=== PATIENT | male | born 1975 | race Caucasian/White ===

== ENCOUNTER 2019-10-27 10:03 | Emergency (ER) | payer OTHER ==
[~2019-10-27] VITALS: Ht 190.5 cm; Wt 106.6 kg
[2019-10-27 10:09] VITALS: BP 152/100
--- NOTE | 2019-10-27 10:09 | NUR ---
ARRIVAL TO ED PATIENT ARRIVED TO ED WITH CC OF TOOTHACHE. MULTIPLE BROKEN TEETH NOTED TO R LOWER JAW WITH MODERATE TO SIGNIFICANT SWELLING NOTED TO R LOWER JAW. DR. CLEMENTE NOTIFIED OF PATIENT'S ARRIVAL. VERBALIZED UNDERSTANDING.
--- NOTE | 2019-10-27 10:20 | ER.PDOC ---
General Chief Complaint: Toothache Stated Complaint: TOOTHACHE Time seen by MD: 10:20 Source: patient Exam Limitations: no limitations History of Present Illness Timing/Duration: gradual, other (two days ago) Associated Symptoms: toothache, swollen jaw, jaw pain (R) Severity: moderate Worsen By: cold Prior symptoms/Treatment: Similar symptoms previous Allergies: Coded Allergies: No Known Allergies (Unverified , 10/27/19) Past Medical History Medical History: hypertension Surgical History: other Family History Significant Family History: no pertinent family hx Social History Smoking: non-smoker Alcohol Use: none Drug Use: none Constitutional: denies no symptoms reported, denies see HPI, denies chills, d enies diaphoresis, denies fever, denies malaise, denies weakness, denies other Eyes: denies no symptoms reported, denies see HPI, denies blindness, denies blurred vision, denies drainage, denies decreased acuity, denies foreign body s ensation, denies inflammation, denies pain, denies photophobia, denies previous injury, denies shadows, denies tunnel vision, denies vision change, denies contact lenses, denies glasses, denies other Ears: denies no symptoms reported, denies see HPI, denies dizziness, denies pain, denies tinnitus, denies bloody discharge, denies clear discharge, denies purulent discharge, denies serosanguinous discharge, denies previous injury, denies other Nose: denies no symptoms reported, denies see HPI, denies clots, denies congestion, denies epistaxis, denies pain, denies bloody discharge, denies clear discharge, denies purulent discharge, denies serosanguinous discharge, denies previous injury, denies other Throat: denies no symptoms reported, denies see HPI, denies pain, denies swelling, denies discharge, denies neck stiffness, denies aphonia, denies hoarse, denies muffled, denies painful swallowing, denies difficulty with fluids, denies previous injury, denies other Respiratory: denies no symptoms reported, denies see HPI, denies cough, denies orthopnea, denies shortness of breath, denies stridor, denies wheezing, denies other Cardiovascular: denies no symptoms reported, denies see HPI, denies chest pain, denies edema, denies palpitations, denies syncope, denies other Gastrointestinal: denies no symptoms reported, denies see HPI, denies abdominal pain, denies constipation, denies diarrhea, denies nausea, denies vomiting, denies other Musculoskeletal: denies no symptoms reported, denies see HPI, denies back pain, denies gout, denies joint pain, denies joint swelling, denies muscle pain, denies muscle stiffness, denies neck pain, denies other Skin: denies no symptoms reported, denies see HPI, denies change in color, denies change in hair/nails, denies dryness, denies lesions, denies lumps, denies rash, denies other Neurological: denies no symptoms reported, denies see HPI, denies anxiety, denies depressed, denies emotional problems, denies headache, denies numbness, denies paresthesia, denies pre-existing deficit, denies seizure, denies tingling, denies tremors, denies weakness, denies other Hematologic/Lymphatic: denies no symptoms reported, denies see HPI, denies anemia, denies blood clots, denies easy bleeding, denies easy bruising, denies swollen glands, denies other Immunological/Allergic: denies no symptoms reported, denies see HPI, denies food allergy, denies grass allergy, denies mold allergy, denies pollen allergy, denies HIV/AIDS, denies transplant Physical Exam General Appearance: mild distress Head/Neck: (R) mandibular swelling Eyes: eyes nml inspection, PERRL, no nystagmus Mouth: dental tenderness, gum swelling, widespread dental decay Throat: pharynx nml, voice nml, no airway problems Ears/Nose: nml inspection Respiratory: no resp. distress, lungs clear CVS: reg. rate & rhythm, heart sounds nml Abdomen: non-tender, no organomegaly Extremities: non-tender, ROM nml Skin Exam: Normal Color, Warm/Dry NEURO/PSYCH: oriented X3, mood/effect nml Results/Orders Results/Orders Vital Signs Date Time Temp Pulse Resp B/P (MAP) Pulse Ox O2 Delivery O2 Flow Rate FiO2 10/27/19 10:09 98.2 72 18 97 10/27/19 10:09 98.2 72 18 10/27/19 10:09 98.2 72 18 152/100 (117) 97 Room Air Progress Progress pt driving home today he is [place] will seek dental care at home for his widespread dental decay and now dental abscess Departure Time of Disposition: 10:20 Disposition: 01 HOME, SELF-CARE Impression: Primary Impression: Periodontal abscess Condition: Stable Referrals: PCP,UNKNOWN (PCP) PRIMARY CARE PROVIDER Comments anoxil 500 tid ,Motrin OTC tyl#3 #12 Duration or Time Spent with Pa: 10 JOCY CLEMENTE MD Oct 27, 2019 10:20
[2019-10-27 10:30] VITALS: BP 144/98
== END 2019-10-27 10:33 | disposition home or self-care (01) ==
LOC: ER 10:03
DX: K05.219 Aggressive periodontitis, localized, unspecified severity (principal); K08.89 Other specified disorders of teeth and supporting structures; I10 Essential (primary) hypertension
CPT/HCPCS: 99283